=== PATIENT | female | born 1955 | race African-American/Black ===

== ENCOUNTER 2021-03-01 13:57 | Outpatient (CLI) | payer OTHER ==
[~2021-03-01 13:57] MED LIST: AMOX1TAB5 PO; BACTROBAN OINT22 GM TP; CALTRATE 600600 MG; GLIMEPIRIDE4 MG; LISINOPRIL5 MG; SIMVASTATIN20 MG
== END 2021-03-01 14:47 | disposition home or self-care (01) ==
LOC: SONOGRAMA 13:57
PROVIDERS: ATTEND Otolaryngology
DX: E04.2 Nontoxic multinodular goiter (principal); R22.1 Localized swelling, mass and lump, neck

== ENCOUNTER 2021-07-01 08:05 | Outpatient (CLI) | payer OTHER | END 2021-07-01 08:06 | disposition home or self-care (01) | LOC: SONOGRAMA 08:05 | PROVIDERS: ATTEND Pathology Anatomic Pathology & Clinical Pathology | DX: E04.9 Nontoxic goiter, unspecified (principal) ==

== ENCOUNTER 2024-05-06 09:06 | Outpatient (CLI) | payer OTHER | END 2024-05-06 09:11 | disposition home or self-care (01) | LOC: SONOGRAMA 09:06 | PROVIDERS: ATTEND Pathology Anatomic Pathology | DX: D34 Benign neoplasm of thyroid gland (principal); E07.89 Other specified disorders of thyroid; E04.1 Nontoxic single thyroid nodule ==